=== PATIENT | male | born 1985 | race Caucasian/White ===

== ENCOUNTER 2018-08-05 14:06 | Emergency (ER) | payer OTHER ==
[2018-08-05 14:19] VITALS: BP 141/78
[2018-08-05] MEDS ORDERED: Famotidine 20 MG/2 ML SDV IVPUSH ONE (14:29)
[2018-08-05] MEDS ORDERED: diphenhydrAMINE 50 MG/ML SDV IVPUSH ONE (14:29)
[2018-08-05] MEDS ORDERED: Sodium Chloride 0.9% 5 ML Syringe FLUSH PRN (14:29)
[2018-08-05] MEDS ORDERED: methylPREDNISolone Sodium Succinate 125 MG/2 ML SDV IVPUSH ONE (14:29)
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
[2018-08-05] MEDS ORDERED: Bacitracin/Neomycin/Polymyxin B Oint 28.4 GM Tube ONE (15:37)
[2018-08-05] MEDS ORDERED: Bacitracin/Neomycin/Polymyxin B Oint 28.4 GM Tube TOP ONE (15:37)
== END 2018-08-05 16:00 | disposition home or self-care (01) ==
LOC: KA.ED 14:06
DX: T59.891A Toxic effect of other specified gases, fumes and vapors, accidental (unintentional), initial encounter (principal); L25.3 Unspecified contact dermatitis due to other chemical products; T20.53XA Corrosion of first degree of chin, initial encounter; T21.51XA Corrosion of first degree of chest wall, initial encounter; T20.52XA Corrosion of first degree of lip(s), initial encounter; T20.57XA Corrosion of first degree of neck, initial encounter; Z79.899 Other long term (current) drug therapy
CPT/HCPCS: 96374; 96375; 99283; J1200; J2930; J3490

== ENCOUNTER 2020-05-05 12:07 | Emergency (ER) | payer MEDICAID, OTHER ==
--- NOTE | 2020-05-05 12:23 | EDM.PDOC ---
ED HPI GENERAL MEDICAL PROBLEM - General Chief Complaint: Genitourinary Problem Stated Complaint: Swollen testicle Time Seen by Provider: 05/05/20 12:23 Source of Information: Reports: Patient History Limitations: Reports: No Limitations - History of Present Illness Onset: Gradual Onset Date: 05/03/20 Duration: Day(s): Location: Reports: Other (Scrotum) Quality: Reports: Ache (, left testicle), Dull Severity: Moderate Improves with: Reports: None Worsens with: Reports: Movement Associated Symptoms: Reports: Other (Associated with urine infection treated on April [facility]) - Related Data Allergies Allergy/AdvReac Type Severity Reaction Status Date / Time No Known Drug Allergies Allergy NKDA Verified 05/05/20 12:16 Home Meds: Home Meds traZODone HCl [Trazodone HCl] 50 mg PO DAILY PRN 05/05/20 [History] Past Medical History HEENT History: Reports: Other (See Below) Other HEENT History: seasonal allergies Gastrointestinal History: Reports: Chronic Diarrhea, GERD Genitourinary History: Reports: None, Other (See Below) Other Genitourinary History: Penile cysts. Psychiatric History: Reports: Anxiety, Depression - Infectious Disease History Infectious Disease History: Reports: Chicken Pox, Other (See Below) Other Infectious Disease History: Staph - Past Surgical History HEENT Surgical History: Reports: None GI Surgical History: Reports: None Social & Family History - Family History Family Medical History: Noncontributory Cardiac: Reports: Heart Failure GI: Reports: Colon Polyps Oncologic: Reports: Colon, Thyroid - Caffeine Use Caffeine Use: Reports: Coffee, Soda ED ROS GENERAL - Review of Systems Review Of Systems: See Below Constitutional: Reports: No Symptoms HEENT: Reports: No Symptoms Respiratory: Reports: No Symptoms Cardiovascular: Reports: No Symptoms Endocrine: Reports: No Symptoms GI/Abdominal: Reports: Abdominal Pain : Reports: Pain, Other (Scrotal testicle enlargement) Musculoskeletal: Reports: No Symptoms Skin: Reports: No Symptoms Neurological: Reports: No Symptoms Psychiatric: Reports: No Symptoms Hematologic/Lymphatic: Reports: No Symptoms Immunologic: Reports: No Symptoms ED EXAM, GENERAL - Physical Exam Exam: See Below Free Text/Narrative:: Alert oriented in mild distress and anxiety. No respiratory distress is noted. Negative for inguinal hernia, bilateral. Enlarged left testicle 9-10 cm firm, painful posterior. Right testicle within normal limits no discomfort. No drainage from penis. Course - Vital Signs Last Recorded V/S: Last Vital Signs Temp 36.6 C 05/05/20 12:08 Pulse 98 05/05/20 12:42 Resp 18 05/05/20 12:08 BP 127/88 05/05/20 12:42 Pulse Ox 133 H 05/05/20 12:42 - Re-Assessments/Exams Free Text/Narrative Re-Assessment/Exam: 05/05/20 12:47 [place] 1 call, Dr. Hdez emergency department graciously accepts via private vehicle. Departure - Departure Time of Disposition: 12:47 Disposition: DC/Tfer to Acute Hospital 02 Condition: Good Clinical Impression: Testicle pain, Testicle swelling - Discharge Information *PRESCRIPTION DRUG MONITORING PROGRAM REVIEWED*: Not Applicable *COPY OF PRESCRIPTION DRUG MONITORING REPORT IN PATIENT NATASHA: Not Applicable Forms: ED Department Discharge Additional Instructions: Drive directly to [facility] This is located on the right-hand side of [facility] as you are coming into [facility] from the [place]. [address] exit then down to the light and take a left. He'll be seen in the emergency department for evaluation. Sepsis Event Note (ED) - Evaluation Sepsis Screening Result: No Definite Risk - Focused Exam Vital Signs: Vital Signs Temp Pulse Resp BP Pulse Ox 05/05/20 12:42 98 127/88 133 H 05/05/20 12:08 36.6 C 125 H 18 156/92 H 98 - Problem List & Annotations (1) Testicle pain SNOMED Code(s): 86040076 Code(s): N50.819 - TESTICULAR PAIN, UNSPECIFIED Status: Acute Priority: High Qualifiers: Laterality: left Qualified Code(s): N50.812 - Left testicular pain (2) Testicle swelling SNOMED Code(s): 905686188 Code(s): N50.89 - OTHER SPECIFIED DISORDERS OF THE MALE GENITAL ORGANS Status: Acute Priority: High - Problem List Review Problem List Initiated/Reviewed/Updated: Yes - Assessment/Plan Plan: Drive directly to [facility] in [place]. This is located on the right-hand side of [facility] as you are coming into [facility] from the [place]. [address] [place] exit then down to the light and take a left. He'll be seen in the emergency department for evaluation.
[2020-05-05 12:43] VITALS: BP 127/88; PULSE 98
== END 2020-05-05 12:52 ==
LOC: KA.ED 12:07
DX: N50.89 Other specified disorders of the male genital organs (principal); F41.9 Anxiety disorder, unspecified; F32.9 Major depressive disorder, single episode, unspecified; Z79.899 Other long term (current) drug therapy
CPT/HCPCS: 99284